=== PATIENT | female | born 1950 | race Caucasian/White ===

== ENCOUNTER 2017-10-24 09:24 | Outpatient (CLI) | payer OTHER ==
[~2017-10-24 09:24] MED LIST: AMBIEN10 MG PO; AMITRIPTYLINE H10 MG PO; CIPRO750 MG PO; COZAAR25 MG PO; Colace 100MG PO; LUTEIN1 GM MC; NEURONTIN600 MG PO; PERCOCET 5/3251 TAB PO; SYNTHROID50 MCG PO; XANAX XR2 MG PO
== END 2017-10-24 09:30 | disposition home or self-care (01) ==
LOC: LAB 09:24
DX: R07.1 Chest pain on breathing (principal); D64.89 Other specified anemias; D68.8 Other specified coagulation defects; E03.8 Other specified hypothyroidism

== ENCOUNTER 2017-10-27 07:45 | Inpatient (IN) | payer OTHER ==
[~2017-10-27] VITALS: Ht 157.5 cm; Wt 77.1 kg
[2017-10-27] MEDS ORDERED: COZAAR25 MG PO (11:58)
[2017-10-27] MEDS ORDERED: METFORMIN HCL500 MG PO (11:58)
[2017-10-29] MEDS ORDERED: DOCUSATE SODIU100 MG PO (09:54)
[2017-10-29] MEDS ORDERED: GABAPENTIN800 MG PO (09:54)
[2017-10-29] MEDS ORDERED: PERCOCET 5-3251 EACH PO (09:55)
[2017-10-29] MEDS ORDERED: CLONAZEPAM1 MG PO (09:55)
[2017-10-29] MEDS ORDERED: CIPROFLOXACIN750 MG PO (09:55)
== END 2017-10-29 14:46 | disposition home or self-care (01) | DRG 455 ==
LOC: PED 10-28 05:00 → O/R 10-28 05:00 → SURH 10-28 07:45 → PED 10-28 17:59
PROVIDERS: Orthopaedic Surgery Orthopaedic Surgery of the Spine
PROC: 0SG0071 Fusion of Lumbar Vertebral Joint with Autologous Tissue Substitute, Posterior Approach, Posterior Column, Open Approach (ICD-10-PCS; 2017-10-28)
PROC: 0ST20ZZ Resection of Lumbar Vertebral Disc, Open Approach (ICD-10-PCS; 2017-10-28)
PROC: 0SG00AJ Fusion of Lumbar Vertebral Joint with Interbody Fusion Device, Posterior Approach, Anterior Column, Open Approach (ICD-10-PCS; 2017-10-28)
PROC: 07DS3ZZ Extraction of Vertebral Bone Marrow, Percutaneous Approach (ICD-10-PCS; 2017-10-28)
PROC: 0SG00A0 Fusion of Lumbar Vertebral Joint with Interbody Fusion Device, Anterior Approach, Anterior Column, Open Approach (ICD-10-PCS; principal; 2017-10-28 16:00)
DX: M48.061 Spinal stenosis, lumbar region without neurogenic claudication (principal); M47.26 Other spondylosis with radiculopathy, lumbar region; M51.16 Intervertebral disc disorders with radiculopathy, lumbar region; E03.8 Other specified hypothyroidism

== ENCOUNTER 2022-08-05 06:27 | Day surgery (SDC) | payer OTHER ==
[~2022-08-05] VITALS: Ht 160 cm; Wt 70.3 kg
[~2022-08-05 06:27] MED LIST changes: +CIPROFLOXACIN750 MG PO; +CLONAZEPAM1 MG PO; +DOCUSATE SODIU100 MG PO; +GABAPENTIN800 MG PO; +JANUVIA100 MG PO; +LEVOTHYROXINE25 MCG PO; +METFORMIN HCL500 MG PO; +PERCOCET 5-3251 EACH PO
== END 2022-08-05 16:05 | disposition home or self-care (01) ==
LOC: CIR.AMB 06:27
PROVIDERS: ATTEND Surgery
DX: K43.9 Ventral hernia without obstruction or gangrene (principal); K43.2 Incisional hernia without obstruction or gangrene; Z20.822 Contact with and (suspected) exposure to COVID-19; Z88.0 Allergy status to penicillin; E11.9 Type 2 diabetes mellitus without complications; Z79.4 Long term (current) use of insulin; I10 Essential (primary) hypertension; E03.9 Hypothyroidism, unspecified
CPT/HCPCS: 49593; C1781